=== PATIENT | male | born 1955 | race Caucasian/White ===

== ENCOUNTER → 2017-08-21 06:55 | Outpatient (CLI) | payer OTHER, SELFPAY ==
[2017-08-04 10:26] VITALS: BP 144/78; BMI 29.8
--- NOTE | 2017-08-21 06:57 | ECHOD_ITS ---
Reason For Study: CAD/ASHD Procedure This was a 2D Doppler, Color Flow transthoracic echocardiogram. The exam was of adequate technical quality. Exam performed in department. Left Ventricle Normal LV size. Segmental dysfunction with preserved ejection fraction (see wall motion). The estimated ejection fraction is 55 %. No evidence for diastolic dysfunction. Posterior-Basal: Severely hypokinetic. Infero-Basal: Akinetic. Mid-Lateral : Hypokinetic. Mid-Posterior: Akinetic. Mid-Inferior: Hypokinetic. Right Ventricle Normal RV size. Normal systolic function. Atria Normal left atrium. Normal right atrium. No doppler evidence for ASD. Mitral Valve There is no mitral annular calcification. Mild diffuse mitral valve thickening. Trivial mitral valve insufficiency. Tricuspid Valve Normal tricuspid valve. Trivial tricuspid valve insufficiency. Aortic Valve Trisinus/trileaflet aortic valve. Mild focal aortic valve calcification. Pulmonic Valve The pulmonic valve is not well visualized. Great Vessels Normal sized aortic root. Pericardium/Pleural No pericardial effusion. MMode/2D Measurements & Calculations LVIDd: 5.2 cm IVSd: 1.3 cm Ao root diam: 2.6 cm LVIDs: 3.9 cm LVPWd: 1.1 cm LA dimension: 3.6 cm RVDd: 3.4 cm FS: 23.8 % LAV(MOD-bp): 43.1 ml LA A4 area: 15.0 cm2 RA A4 area: 14.4 cm2 LAV(MOD-bp) Indexed: 19.4 ml/m2 LAV(MOD-sp2): 45.5 ml LAV(MOD-sp4): 39.4 ml Time Measurements MV dec time: 0.31 sec Doppler Measurements & Calculations MV E max pascual: 63.9 cm/sec Lat Peak E' Pascual: 5.9 cm/sec Med Peak E' Pascual: 5.0 cm/sec MV A max pascual: 76.7 cm/sec E/E' lat: 10.9 E/E' med: 12.7 MV E/A: 0.83 Ao V2 max: 131.7 cm/sec LV V1 max: 111.3 cm/sec PA V2 max: 230.1 cm/sec Ao max P.9 mmHg LV V1 max P.0 mmHg PA V2 mean: 145.0 cm/sec PA V2 VTI: 43.6 cm Interpretation Summary Segmental dysfunction with preserved ejection fraction (see wall motion). The estimated ejection fraction is 55 %. Mild diffuse mitral valve thickening. Trivial mitral valve insufficiency. Trivial tricuspid valve insufficiency. Mild focal aortic valve calcification. No evidence for diastolic dysfunction. Ordering Physician: German Pedro Referring Physician: Andriy Thomas Chi Performed By: Yahaira Dailey, LIEN, RVT
--- NOTE | 2017-08-21 10:20 | STRESSREP_ITS ---
Stress Test Report Date: 08/21/2017 Procedure: Exercise tolerance test/imaging study Indications: Shortness of breath/dyspnea; CAD; status post PCI Consent: Per the patient Procedure: The patient exercised on a Han protocol for 8 minutes completing stage 2 and 2 minutes of stage III achieving a peak heart rate of 146 bpm (92 % predicted maximal heart rate) with a peak blood pressure 158/50 mmHg and a peak MET capacity of 9 METs. The baseline ECG demonstrated sinus bradycardia with nonspecific T-wave abnormality. The peak exercise ECG demonstrated somatic/motion artifact with no obvious ECG changes. There was a rare PVC and ventricular couplet during exercise and recovery. The functional capacity was considered good. There was [no complaint of chest discomfort during exercise or recovery]. The examination was discontinued secondary to dyspnea. Impression: 1. Technically adequate (percent predicted maximal heart rate greater than 85% ) exercise tolerance test 2. Peak exercise ECG demonstrated somatic/motion artifact with no obvious ECG changes 3. Rare PVC and ventricular couplet during exercise and recovery. 4. Nuclear images pending Myocardial perfusion imaging study: Technique: The patient was injected with 14.4 mCi of technetium 99m Cardiolite and subsequently rest SPECT Cardiolite nuclear imaging was obtained in the horizontal long, vertical long, and short axis views. The patient exercised on a Han protocol for 8 minutes completing stage 2 and 2 minutes of stage III achieving a peak heart rate of 146 bpm (92 % predicted maximal heart rate) with a peak blood pressure 158/50 mmHg and a peak MET capacity of 9 METs. The patient was injected with 44.8 mCi of technetium 99m Cardiolite and subsequently stress SPECT Cardiolite nuclear imaging was obtained in the horizontal long, vertical long, and short axis views. A gated Cardiolite study at peak stress was obtained. Interpretation: Rest and stress SPECT Cardiolite nuclear imaging status post realignment, normalization, and attenuation correction, demonstrates the appearance of diminished absence of tracer uptake in portions of the basal inferoseptal, basal inferior, and basal inferolateral segments extending through the mid to distal inferior lateral, inferior apical and lateral apical segments which appears to be somewhat more prominent following stress as opposed to rest. There is diminished end systolic thickening and brightening in the aforementioned areas. The gated Cardiolite study demonstrates diminished myocardial thickening and inward wall motion in the basal inferior segments. The reported LVEF is 56 %. Impression: 1. Rest and stress SPECT Cardiolite nuclear imaging demonstrate cardio perfusion changes appearing compatible with an area of previous myocardial injury/infarction involving portions of the basal inferoseptal, basal inferior, and basal inferolateral segments extending through the mid to distal inferior lateral, inferoapical and lateral apical segments with associated post stress myocardial perfusion changes appearing compatible with jolie-infarct related myocardial ischemia. 2. The gated Cardiolite study reports an LVEF of 56 %. This note was generated with Good Thingation software. It may contain incorrect words, spelling, and punctuation that were not noted in checking the note before signing.
== END ==
PROVIDERS: Family Provider Family Medicine Geriatric Medicine; PCP Family Medicine Geriatric Medicine; Visit Provider Internal Medicine Cardiovascular Disease
DX: I25.10 Atherosclerotic heart disease of native coronary artery without angina pectoris (principal); R06.02 Shortness of breath
CPT/HCPCS: 78452; 93017; 93306; A9500; A4216

== ENCOUNTER → 2017-08-27 09:11 | Outpatient (CLI) | payer OTHER, SELFPAY ==
[2017-08-27 10:28] LABS: Thyroid Stim Hormone (TSH) 3.13 uIU/mL (0.358-3.74)
== END ==
PROVIDERS: Family Provider Family Medicine Geriatric Medicine; PCP Family Medicine Geriatric Medicine; Visit Provider Family Medicine Geriatric Medicine
DX: E05.90 Thyrotoxicosis, unspecified without thyrotoxic crisis or storm (principal)
CPT/HCPCS: 36415; 84443

== ENCOUNTER → 2017-08-28 10:46 | Outpatient (CLI) | payer OTHER, SELFPAY ==
--- NOTE | 2017-08-28 13:33 | PFT ---
INTRODUCTION: The patient is a 62-year-old male currently under the care of Dr. Pedro the presents for pulmonary function testing secondary to a diagnosis of shortness of breath. Respiratory therapy reports good patient effort and reports no other concerns. Bronchodilators were used during testing. INTERPRETATION: Forced expiration spirometry demonstrates no evidence of a large airways obstructive ventilatory defect. There was no significant response to aerosolized bronchodilators, based upon strict ATS criteria. Spirogram's are of fair quality and plateau gradually indicating slow emptying of the lungs. Body plethysmography was performed and reveals a decreased TLC to 5.96 L, 84% of predicted, indicative of a mild restrictive ventilatory defect. The remainder of the lung volumes are symmetrically reduced. Diffusing capacity by single breath CO is within normal limits. IMPRESSION: These pulmonary function studies demonstrate the presence of an isolated mild restrictive ventilatory defect. There are no previous pulmonary function studies available for comparison.
== END ==
PROVIDERS: Family Provider Family Medicine Geriatric Medicine; PCP Family Medicine Geriatric Medicine; Visit Provider Internal Medicine Cardiovascular Disease
DX: R06.02 Shortness of breath (principal)
CPT/HCPCS: 94060; 94726; 94729

== ENCOUNTER 2018-01-01 02:45 | Emergency (ER) | payer OTHER, SELFPAY ==
[2018-01-01 02:45] VITALS: BP 195/86; PULSE 73; RESP 16; TEMP 36.8; O2SAT 100; BMI 29.7
--- NOTE | 2018-01-01 03:02 | CT_ITS ---
STUDY: CT SOFT TISSUE NECK WITH CONTRAST REASON FOR EXAM: Male, 62 years old. Left mandibular swelling. Dental problems for months. History of coronary stent and hypertension. RADIATION DOSAGE (If Supplied By Facility): CTDIvol = ( 20.23 ) mGy, DLP = ( 707.31 ) mGycm TECHNIQUE: The patient was scanned in a multi-detector CT scanner. High resolution transaxial imaging was performed following intravenous administration of 75mL ml of Isovue 300 contrast material. Sagittal and coronal images were reconstructed. Individualized dose optimization techniques were used for this CT. COMPARISON: None. FINDINGS: There is prominent infiltration of subcutaneous fat in the left perimandibular region, consistent with cellulitis. There is no visualized soft tissue abscess. There are small periapical abscesses underlying the roots of the lower left premolar teeth #20 and #21. There is no demonstrated overlying cortical discontinuity, however, the periapical abscess of tooth #20 is contiguous with the left mental foramen and this may constitute a direct route for spread of infection into overlying soft tissues. Normal bilateral parotid glands. Normal bilateral blind eyeletter spaces. Normal bilateral parapharyngeal spaces. Normal bilateral carotid spaces. Normal bilateral sublingual and submandibular glands and spaces. Normal visualized nasopharynx. Normal retropharyngeal space. Normal perivertebral space. Normal visualized bilateral faucial tonsils. The visualized tongue, tongue base and oropharynx are normal. The visualized cervical lymph nodes (levels I-) are within normal size limits, and maintain normal morphology. There is no demonstrated solid or cystic mass lesion. There is no abnormal contrast enhancement. Normal epiglottis, bilateral vallecula and hypopharynx. The pre-epiglottic and paraglottic adipose spaces are normal. Normal visualized bilateral piriform sinuses, aryepiglottic folds, vocal cords, and arytenoid-cricoid articulations. Normal subglottic trachea. Normal bilateral lobes of the thyroid gland. Normal visualized pulmonary apices. There is a polyp or retention cyst in the right maxillary sinus. There is no evidence for acute sinusitis. Normal visualized cervical spine. CT/Soft Tissue Neck WITH Contrast IMPRESSION: Phlegmonous infiltration of subcutaneous fat in the left perimandibular region, consistent with cellulitis. No visualized discrete soft tissue abscess, at this time. Periapical abscesses of underlying lower left premolar teeth #20 and #21. The #20. Focal abscess is contiguous with the left mental foramen and this may represent a direct route for spread of periodontal infection into overlying soft tissues. No other significant abnormalities are demonstrated. Electronically Signed: Levi Morgan MD at 4:32 EDT , Service support ,
--- NOTE | 2018-01-01 03:08 | ED.DCSUM_ITS ---
- ER Visit Summary Date of Service: 01/01/18 Chief Complaint: Facial swelling History of Present Illness: The patient is a 62 M presents for facial swelling. Patient states he was told in August that he needed a root canal on a left mandibular molar, however he has not had that performed yet. The tooth has been hurting for the last few days. Patient went to bed and woke up with significant left-sided facial swelling. He denies any pain associated with it. He has associated headache that started when he went to bed. Patient has taken Tylenol for the headache. He denies fever, difficulty swallowing, shortness of breath, neck pain, cough, or any other symptoms. Patient is not currently on any antibiotics or blood thinners. Physical Examination: Vital signs: afebrile, hemodynamically stable, no hypoxia on room air General: well nourished, well developed, in no distress Skin: warm, dry, no rash, no pallor HEENT: normocephalic and atraumatic; PERRL, EOMI, significant swelling noted to the left perimandibular region, mildly tender to palpation, no fluctuance. Moist mucous membranes, no oropharyngeal lesions, no submandibular swelling, no sublingual edema, uvula is midline with no posterior pharynx erythema or exudate. No asymmetry to oropharyngeal structures. No tenderness to percussion of the teeth. No obvious abscess. No gingival lesions. Cardiovascular: regular rate and rhythm without murmurs, no peripheral edema, 2 + pulses all distal extremities Respiratory: No increased work of breathing, MSK: Moves all extremities, no deformities, normal strength Neuro: Awake and alert, oriented ?4. No facial droop, sensation and motor function intact and symmetric Test Results: Abnormal Lab Results 01/01/18 01/01/18 03:10 03:10 WBC 9.2 RBC 4.47 L Hgb 14.9 Hct 42.6 MCV 95.3 H MCH 33.3 H MCHC 35.0 RDW 11.8 RDW Differential 40.7 Plt Count 141 L MPV 11.1 Immature Gran % (Auto) 0.100 Neut % (Auto) 69.9 Lymph % (Auto) 16.7 L [place] % (Auto) 10.0 Eos % (Auto) 3.1 Baso % (Auto) 0.2 Absolute Neuts (auto) 6.4 Absolute Lymphs (auto) 1.53 Total Counted Not Reportable Sodium 143 Potassium 4.3 Chloride 108 H Carbon Dioxide 27.0 Anion Gap 8 BUN 16 Creatinine 0.94 Estim Creat Clear Calc 89.43 Est GFR (MDRD) Af Amer 104 Est GFR (MDRD) Non-Af 86 BUN/Creatinine Ratio 17.0 Glucose 107 H Calcium 8.4 L Clinical Impression(s) from Imaging Studies Soft Tissue Neck CT 01/01/18 03:02 IMPRESSION: Phlegmonous infiltration of subcutaneous fat in the left perimandibular region, consistent with cellulitis. No visualized discrete soft tissue abscess, at this time. Periapical abscesses of underlying lower left premolar teeth #20 and #21. The #20. Focal abscess is contiguous with the left mental foramen and this may represent a direct route for spread of periodontal infection into overlying soft tissues. No other significant abnormalities are demonstrated. Electronically Signed: Levi Morgan MD at 4:32 EDT , Service support , Emergency Department Course and Treatment: Patient has significant swelling to the left face over the perimandibular region. There is no fluctuance to the swelling, and there is no evidence of salivary duct stones during examination of the oropharynx. Given the history of dental disease with the preceding toothache and headache, now with significant facial swelling, CT soft tissue neck was performed. Labs showed no leukocytosis. CT showed cellulitis of the perimandibular region, likely due to periapical abscesses from teeth 20 and 21. Patient is well-appearing, has normal vital signs, is afebrile, has no leukocytosis, and no airway disruption, with cellulitis limited to the mandibular region of the face. Thus outpatient management will be performed. Patient was given a dose of IV Unasyn in the emergency department and started on Augmentin. He is to call his dentist as soon as the office opens today to make a follow-up appointment for as soon as possible for drainage of the periapical abscesses. Patient was given strict return precautions. Patient agreed with this plan. He had no worsening of his facial swelling on reevaluation. Patient was discharged home. Treatment Plan: [] Disposition: [] Impression: Left mandibular molar periapical abscess, left perimandibular facial cellulitis This note was generated with Dragon dictation software. It may contain incorrect words, spelling, and punctuation that were not noted in review of the chart prior to signing ED Disposition - Plan for ED Patient: Disposition: Home or Assisted Living Chief Complaint: Dental Instructions: ED Dental Abscess Facial Cellulitis Prescriptions: Amox/Clavulanate Tablet [Augmentin Tablet] 875 mg PO Q12H #20 tab Referrals: Andriy Thomas Chi, MD [Primary Care Provider] - Additional Instructions: Make an appointment with your dentist for as soon as possible to complete the dental work on your left lower teeth. Take the antibiotic as prescribed for the entire 10 days unless your dentist tells you to do otherwise. If you develop any worsening of your condition, such as worsening swelling, fever, neck pain or stiffness, trouble breathing or swallowing, or any other concerning symptoms, return immediately to the emergency department for another evaluation.
[2018-01-01] MEDS: 0.9% Normal Saline 1,000 ML 999 ML IV (03:13)
[2018-01-01 03:21] LABS: Absolute Lymphocyte Count 1.53 X10^3/ul (0.83-4.51); Absolute Neutrophil Count 6.4 X10^3/uL (2.0-7.7); Basophil# 0.02 X10^3/uL; Basophil% 0.2 % (0-1); Eosinophil# 0.28 X10^3/uL; Eosinophils% 3.1 % (0-5); Hematocrit 42.6 % (40-54); Hemoglobin 14.9 g/dl (13.0-16.5); Lymphocyte # 1.53 X10^3/ul (4.0); Lymphocyte % 16.7 % (19-41); Mean Corpuscular Hgb 33.3 pg (27.0-32.0); Mean Corpuscular Volume 95.3 fL (80-94); Mean Platelet Vol. 11.1 fl (6.2-12.0); Monocyte# 0.92 X10^3/uL; Neutrophil % 69.9 % (47-70); Platelet Count 141 K/mm3 (150-450); RBC Distribution Width CV 11.8 % (11.6-14.6); RBC Distribution Width SD 40.7 fl (35.1-43.9); Red Blood Count 4.47 M/mm3 (4.6-6.2); White Blood Count 9.2 K/mm3 (4.4-11.0)
[2018-01-01 03:22] LABS: POSITIVE COUNT NO; POSITIVE DIFFERENTIAL NO; POSITIVE MORPHOLOGY NO
[2018-01-01 03:53] LABS: Anion Gap 8 (5-15); BUN 16 mg/dL (7-18); Calcium,Total 8.4 mg/dL (8.5-10.1); Chloride 108 mmol/L (98-107); Creatinine, Serum 0.94 mg/dL (0.70-1.30); EST Glomerular Filtration Rate 86 mL/min (>60); Est Glom Filt Rate - Afr Amer 104 mL/min (>60); Estimated Creatinine Clearance 89.43 ml/min; Glucose 107 mg/dL (74-106); Potassium 4.3 mmol/L (3.5-5.1); Sodium Level 143 mmol/L (136-145)
[2018-01-01 04:13] VITALS: RESP 20; O2SAT 98
[2018-01-01] MEDS: Amox/Clavulanate 875 MG Tablet PO (04:52)
--- NOTE | 2018-01-01 04:52 | ED.DEP ---
ED Disposition - Plan for ED Patient: Disposition: Home or Assisted Living Chief Complaint: Dental Instructions: ED Dental Abscess Facial Cellulitis Prescriptions: Amox/Clavulanate Tablet [Augmentin Tablet] 875 mg PO Q12H #20 tab Referrals: Andriy Thomas Chi, MD [Primary Care Provider] - Additional Instructions: Make an appointment with your dentist for as soon as possible to complete the dental work on your left lower teeth. Take the antibiotic as prescribed for the entire 10 days unless your dentist tells you to do otherwise. If you develop any worsening of your condition, such as worsening swelling, fever, neck pain or stiffness, trouble breathing or swallowing, or any other concerning symptoms, return immediately to the emergency department for another evaluation.
[2018-01-01 05:57] VITALS: BP 173/83; PULSE 66; RESP 18; O2SAT 100
== END 2018-01-01 05:58 | disposition home or self-care (01) ==
PROVIDERS: Emergency Provider Emergency Medicine; Family Provider Family Medicine Geriatric Medicine; PCP Family Medicine Geriatric Medicine
DX: K04.7 Periapical abscess without sinus (principal); L03.211 Cellulitis of face; I25.10 Atherosclerotic heart disease of native coronary artery without angina pectoris; Z79.82 Long term (current) use of aspirin; Z79.899 Other long term (current) drug therapy; Z95.5 Presence of coronary angioplasty implant and graft
CPT/HCPCS: 70491; 80048; 85025; 96361; 96365; 99285; J7030; J7050; Q9967; A4216; J0295

== ENCOUNTER → 2018-07-13 14:58 | Outpatient (CLI) | payer OTHER, SELFPAY ==
[2018-07-13 14:58] VITALS: BMI 29.8
== END ==
PROVIDERS: Family Provider Family Medicine Geriatric Medicine; PCP Family Medicine Geriatric Medicine; Visit Provider Family Medicine Geriatric Medicine
DX: I10 Essential (primary) hypertension (principal); Z12.5 Encounter for screening for malignant neoplasm of prostate
CPT/HCPCS: 36415; 80053; 84153; 84443; G0103

== ENCOUNTER → 2020-02-14 12:24 | Outpatient (CLI) | payer MEDICARE, SELFPAY ==
[2020-02-11 14:10] VITALS: BMI 28.6
[2020-02-14 13:31] LABS: AST(SGOT) 19 U/L (15-37); Alanine Aminotransfer ALT/SGPT 42 U/L (16-61); Albumin, Serum 3.5 g/dL (3.2-5.0); Alkaline Phosphatase 89 U/L (45-117); Cholesterol 201 mg/dL (200); Globulin 3.3 g/dL (2.2-4.2); High Density Lipoprotein 27 mg/dL; Protein, Total 6.8 g/dL (6.4-8.2); T4 Total, Thyroxin 7.2 ug/dL (4.5-12.1); Triglycerides 284 mg/dL; Very Low Density Lipoprotein 57 mg/dL (5-40)
== END ==
PROVIDERS: PCP Family Medicine Geriatric Medicine; Referring Provider Internal Medicine Cardiovascular Disease; Visit Provider Internal Medicine Cardiovascular Disease
DX: E78.00 Pure hypercholesterolemia, unspecified (principal)
CPT/HCPCS: 36415; 80061; 80076; 84436; 84443

== ENCOUNTER → 2020-03-22 11:53 | Outpatient (CLI) | payer MEDICARE, SELFPAY ==
[2020-02-11 14:10] VITALS: BMI 28.6
[2020-03-22 12:47] LABS: Absolute Lymphocyte Count 1.36 X10^3/uL (0.83-4.51); Absolute Neutrophil Count 3.5 X10^3/uL (2.0-7.7); Basophil# 0.04 X10^3/uL; Basophil% 0.7 % (0-1); Eosinophil# 0.18 X10^3/uL; Eosinophils% 3.1 % (0-5); Hematocrit 47.6 % (40-54); Hemoglobin 16.1 g/dL (13.0-16.5); Lymphocyte # 1.36 X10^3/ul (4.0); Lymphocyte % 23.7 % (19-41); Mean Corp Hgb Conc 33.8 g/dL (32-36); Mean Corpuscular Hgb 32.3 pg (27.0-32.0); Mean Corpuscular Volume 95.4 fL (80-94); Mean Platelet Vol. 11.4 fl (6.2-12.0); Monocyte# 0.71 X10^3/uL; Monocyte% 12.3 % (0-10); NRBC Flagged by Analyzer 0 % (0-5); Neutrophil # 3.45 X10^3/uL (2.7-7.7); Platelet Count 174 K/mm3 (150-450); RBC Distribution Width SD 41.9 fl (35.1-43.9); Red Blood Count 4.99 M/mm3 (4.6-6.2); White Blood Count 5.8 K/mm3 (4.4-11.0)
[2020-03-22 13:10] LABS: ALB/GLOB Ratio 1.1 RATIO (0.9-2.4); AST(SGOT) 24 U/L (15-37); Alanine Aminotransfer ALT/SGPT 45 U/L (16-61); Albumin, Serum 3.7 g/dL (3.2-5.0); Alkaline Phosphatase 97 U/L (45-117); Anion Gap 3 (5-15); BUN 16 mg/dL (7-18); Calcium,Total 8.9 mg/dL (8.5-10.1); Chloride 107 mmol/L (98-107); EST Glomerular Filtration Rate 80 mL/min (>60); Est Glom Filt Rate - Afr Amer 96 mL/min (>60); Globulin 3.4 g/dL (2.2-4.2); Glucose 76 mg/dL (74-106); PSA,Total - Annual Screen 0.48 ng/mL (0.00-4.00); Potassium 4.6 mmol/L (3.5-5.1); Protein, Total 7.1 g/dL (6.4-8.2); Sodium Level 140 mmol/L (136-145); Thyroid Stim Hormone (TSH) 2.59 uIU/mL (0.358-3.74)
== END ==
PROVIDERS: PCP Family Medicine Geriatric Medicine; Visit Provider Family Medicine Geriatric Medicine
DX: E55.9 Vitamin D deficiency, unspecified (principal); I10 Essential (primary) hypertension; Z12.5 Encounter for screening for malignant neoplasm of prostate
CPT/HCPCS: 36415; 80053; 82306; 84153; 84443; 85025; G0103

== ENCOUNTER → 2021-03-28 10:21 | Outpatient (CLI) | payer MEDICARE, SELFPAY ==
[2021-03-28 12:19] LABS: Absolute Lymphocyte Count 1.58 X10^3/uL (0.83-4.51); Absolute Neutrophil Count 3.5 X10^3/uL (2.0-7.7); Basophil# 0.06 X10^3/uL; Eosinophil# 0.51 X10^3/uL; Eosinophils% 8.1 % (0-5); Hematocrit 49.2 % (40-54); Hemoglobin 16.6 g/dL (13.0-16.5); Lymphocyte # 1.58 X10^3/ul (0.83-4.51); Lymphocyte % 25.2 % (19-41); Mean Corp Hgb Conc 33.7 g/dL (32-36); Mean Platelet Vol. 12.3 fl (6.2-12.0); Monocyte# 0.56 X10^3/uL; Monocyte% 8.9 % (0-10); NRBC Flagged by Analyzer 0 % (0-5); Neutrophil # 3.54 X10^3/uL (2.7-7.7); Neutrophil % 56.6 % (47-70); Platelet Count 167 K/mm3 (150-450); RBC Distribution Width CV 12.4 % (11.6-14.6); RBC Distribution Width SD 43.6 fl (35.1-43.9); Red Blood Count 5.18 M/mm3 (4.6-6.2); White Blood Count 6.3 K/mm3 (4.4-11.0)
[2021-03-28 12:25] LABS: Vitamin D,25 Hydroxy 35.7 ng/mL
[2021-03-28 12:33] LABS: AST(SGOT) 18 U/L (15-37); Alanine Aminotransfer ALT/SGPT 37 U/L (16-61); Albumin, Serum 3.5 g/dL (3.2-5.0); Alkaline Phosphatase 87 U/L (45-117); Anion Gap 5 (5-15); BUN 16 mg/dL (7-18); BUN/Creat Ratio 14.7 RATIO (10-20); Chloride 107 mmol/L (98-107); Cholesterol 205 mg/dL (200); Creatinine, Serum 1.09 mg/dL (0.70-1.30); EST Glomerular Filtration Rate 72 mL/min (>60); Est Glom Filt Rate - Afr Amer 87 mL/min (>60); Globulin 3.6 g/dL (2.2-4.2); Glucose 108 mg/dL (74-106); High Density Lipoprotein 28 mg/dL; PSA,Total - Annual Screen 0.51 ng/mL (0.00-4.00); Potassium 4.6 mmol/L (3.5-5.1); Protein, Total 7.1 g/dL (6.4-8.2); Sodium Level 141 mmol/L (136-145); Thyroid Stim Hormone (TSH) 1.91 uIU/mL (0.358-3.74); Triglycerides 195 mg/dL; Very Low Density Lipoprotein 39 mg/dL (5-40)
== END ==
PROVIDERS: PCP Family Medicine Geriatric Medicine; Visit Provider Family Medicine Geriatric Medicine
DX: I10 Essential (primary) hypertension (principal); E78.5 Hyperlipidemia, unspecified; E55.9 Vitamin D deficiency, unspecified; Z12.5 Encounter for screening for malignant neoplasm of prostate
CPT/HCPCS: 36415; 80053; 80061; 82306; 84153; 84443; 85025; G0103

== ENCOUNTER → 2021-12-03 | Outpatient (CLI) | payer MEDICARE, SELFPAY ==
--- NOTE | 2021-12-03 14:42 | RAD_ITS ---
EXAM: XR ABDOMEN, 2 VIEWS CLINICAL INDICATION: ABDOMINAL PAIN TECHNIQUE: Frontal view of the abdomen/pelvis with upright view of the abdomen. This report was created using [employer] report generation technology. COMPARISON: None. FINDINGS: LOWER THORAX: No acute pathology. INTRAPERITONEAL SPACE: No free air. GASTROINTESTINAL TRACT: There is still in the colon may suggest constipation. Non-obstructive. No bowel or stomach distention. ORGANS: Unremarkable as visualized. No organomegaly. No abnormal calcifications. BONES/JOINTS: Mild degenerative findings in the lumbar spine. SOFT TISSUES: No acute pathology. RAD/Abd Inc Decub and/or Erect IMPRESSION: There is still in the colon may suggest constipation. Electronically Signed: John Law MD at 18:11 EDT ,
== END | disposition home or self-care (01) ==
PROVIDERS: PCP Family Medicine Geriatric Medicine; Referring Provider Family Medicine Geriatric Medicine; Visit Provider Family Medicine Geriatric Medicine
DX: R10.9 Unspecified abdominal pain (principal)
CPT/HCPCS: 74018; 74019

== ENCOUNTER 2022-03-20 08:41 | Day surgery (SDC) | payer MEDICARE, SELFPAY ==
[2022-03-20] VITALS (8 sets, daily range): BP systolic 129–153; BP diastolic 61–74; PULSE 52–58; RESP 16; TEMP 36.4–36.9; O2SAT 100; BMI 27.3
[2022-03-20] MEDS: Lactated Ringers 1,000 ML 15 ML IV (09:07)
--- NOTE | 2022-03-20 09:30 | EGD_PTH ---
PATIENT: BRENDEN LAROSE LOC: EN U#:[id number] AGE/SX: 67/M ROOM: RE03/20/[address]: Dr. Jean-Paul Moran DO : 1955 BED: DIS: 03/20/2022 SPEC #: [id number] RECD: 03/20/22 11:25 STATUS: ISAAK MANUEL #: [id number] SHA: 03/20/22 09:[address]: Jean-Paul Moran DEPT: SURGICAL PATHOLOGY RECD BY: Malathi Weinstein ENTERED: 03/20/22 12:28 SP TYPE: EGD BIOPSY PALLAVI DR: Dr. Andriy Thomas MD Tissues: Esophagus, NOS Procedures: Special Stain Group II Surgery Specimen Level IV Alcian Blue/PAS (control) HEADER OPERATION: EGD with biopsy, balloon dilation, gold probe (MAC) PRE-OP DIAGNOSIS: GERD TISSUE SUBMITTED: Distal esophagus biopsy MICROSCOPIC DIAGNOSIS Distal esophagus, biopsy: Fragments of gastroesophageal mucosa with chronic inflammation. Intestinal metaplasia (goblet cell metaplasia) not identified. See comment. ROSALBA:helen 03/21/2022 COMMENT Alcian blue/PAS stain with matched control is used in the evaluation of the specimen. MICROSCOPIC DESCRIPTION Slides are reviewed. GROSS DESCRIPTION Received in fixative is one container labeled with the patient's name and designated distal esophagus biopsy. The specimen consists of multiple irregular fragments of light rene soft tissue that in aggregate measure 0.9 x 0.3 x 0.1 cm. The specimen is totally submitted in one cassette. / ROSALBA:helen 03/20/2022 TC:3 CPT: 78165, 06891
--- NOTE | 2022-03-20 10:19 | PCM.HP.BLA ---
History and Physical Date of Admission: 03/20/22 WALDEMAR LAROSE, is a 67 M who presents to the office today for Initial consult. Waldemar established with this clinic 02.08.22 with referral from [employer] for further evaluation of GERD with throat burning, upset stomach, sour taste and bloating; with three occurrences in one week. Noted triggers include diet. He is not currently having any symptoms and has not had a recurrence of symptoms since that time. PCP started him with senna and protonix. Reports stooling every day or every other day with some straining prior to start of senna; he did not find this to be an issue. Currently having daily BM. PMH includes hyperlipidemia, HTN, heart catheterization, coronary artery stent, left ventricular systolic dysfunction. Xray abdomen 12.03.21 noted still in the colon suggesting constipation. ROS Const Constitutional: No anorexia, fatigue, fever(s), weight change or sleep problems Eyes Eyes: No change in vision ENT ENT: No abnormal hearing, difficulty swallowing, mouth lesions, tongue swelling or throat swelling Resp Respiratory: No cough or shortness of breath Cardio Cardiology: No chest pain at rest, chest pain with exertion, shortness of breath or dyspnea on exertion Gastro GI: No difficulty swallowing Genitourinary Male: No difficulty urinating or burning urination Musc Musculoskeletal: No joint pain, joint swelling, muscle weakness or decreased muscle mass Skin Skin: No hair loss in leg, yellowing of the eye, itchy eyes, rash, skin ulcer or skin swelling Neuro Neurology: No abnormal hearing, abnormal movements, confusion, unsteady gait/balance or memory loss Psych Psychiatric: No anxiety, No confusion and No memory loss Endo Endocrine: No fatigue or weight change Aller/Imm Allergy/Immunologic: No itchy eyes, throat swelling or tongue swelling Aamir/Lymp Hematologic/Lymphatic: No easy bleeding, easy bruising or enlarged lymph nodes Exam Const General: cooperative and comfortable Nutritional Appearance: average body habitus and well nourished [facility] Head: normal to inspection Ears: hearing grossly normal bilaterally Nose: external nose normal Face and sinus: normal facial exam Mouth: oral mucosae normal Throat: posterior oropharynx normal Eyes General: appearance normal, both eyes and all related structures Neck Neck: normal visual inspection Chest Chest palpation & inspection: normal inspection of the chest and normal palpation of entire chest wall Resp Effort & Inspection: normal respiratory effort Auscultation: Bilateral: Clear to Auscultation Cardio Palpation: normal PMI Rate: regular rate Rhythm: regular rhythm GI Inspection: normal to inspection Auscultation: normal bowel sounds Percussion: normal to percussion Palpation: no hepatosplenomegaly Skin General: no rashes or lesions noted Neuro General: patient alert Extrem General: normal to inspection Psych Affect: normal affect Quality Reporting Tobacco Screening ([facility] 138) Smoking Status: Never smoker Assessment and Plan Assessment and Plan (1) GERD (gastroesophageal reflux disease): ?Status:?Chronic ?Plan: Patient was having symptoms of gastroesophageal reflux disease until he was started on omeprazole therapy.? He has been having symptoms of reflux disease and recalls bloating for the last several years.? He is does not have any food intolerances.? He does not have any chest pain or shortness of breath.? He does not have any numbness or weakness.? He does have history of CAD and does take aspirin on a daily basis due to the fact that he had 3 stents placed.? His blood pressure is? stable.? The differential diagnosis for his upper GI symptoms would be atypical reflux disease, atypical reflux disease, hiatal hernia.? He should undergo an upper endoscopy evaluate his upper GI tract.? He was explained alternatives, risk, benefits include not withstanding bleeding, infection, sepsis, perforation, need for urgent .? He will have an ASA of 3. (2) Constipation: ?Status:?Chronic ?Plan: Patient has done well regarding his slow bowels with Senokot.? Told him that he should not take this for an extended period time as it can make his colon very lazy. I have re-examined the patient. There are no clinical changes since date of exam.
--- NOTE | 2022-03-20 11:03 | OP.EGD_ITS ---
Patient Name: Waldemar Duval Procedure Date: 03/20/2022 10:27 AM Date of : 1955 Age: 67 Procedure: Upper GI endoscopy Indications: Functional Dyspepsia, Dysphagia Providers: Jean-Paul Moran DO Medicines: Monitored Anesthesia Care Patient Profile: This is a 67 year old male. Refer to note in patient chart for documentation of history and physical. Patient has symptoms of chronic abdominal cramping and chronic dysphagia. Complications: No immediate complications. Procedure: Pre-Anesthesia Assessment: - Prior to the procedure, a History and Physical was performed, and patient medications and allergies were reviewed. The risks and benefits of the procedure and the sedation options and risks were discussed with the patient. All questions were answered and informed consent was obtained. Patient identification and proposed procedure were verified by the physician in the pre-procedure area. Mental Status Examination: alert and oriented. Airway Examination: normal oropharyngeal airway and neck mobility. Respiratory Examination: clear to auscultation. CV Examination: normal. Prophylactic Antibiotics: The patient does not require prophylactic antibiotics. Prior Anticoagulants: The patient has taken no previous anticoagulant or antiplatelet agents. ASA Grade Assessment: II - A patient with mild systemic disease. After reviewing the risks and benefits, the patient was deemed in satisfactory condition to undergo the procedure. The anesthesia plan was to use monitored anesthesia care (MAC). Immediately prior to administration of medications, the patient was re-assessed for adequacy to receive sedatives. The heart rate, respiratory rate, oxygen saturations, blood pressure, adequacy of pulmonary ventilation, and response to care were monitored throughout the procedure. The physical status of the patient was re-assessed after the procedure. After obtaining informed consent, the endoscope was passed under direct vision. Throughout the procedure, the patient's blood pressure, pulse, and oxygen saturations were monitored continuously. The gastroscope was introduced through the mouth, and advanced to the second part of duodenum. The upper GI endoscopy was accomplished without difficulty. The patient tolerated the procedure well. Scope In: 10:32:29 AM Scope Out: 10:51:17 AM Total Procedure Duration Time 0 hours 18 minutes 48 seconds Findings: A high-grade of narrowing, obstructing and severe Schatzki ring was found in the lower third of the esophagus. A TTS dilator was passed through the scope. Dilation with an 18-19-20 mm balloon dilator was performed to 18 mm. The dilation site was examined following endoscope reinsertion and showed complete resolution of luminal narrowing. Biopsies were taken with a cold forceps for histology. Verification of patient identification for the specimen was done. Estimated blood loss was minimal. Coagulation for tissue destruction using bipolar probe was successful. Estimated blood loss was minimal. A medium-sized hiatal hernia was present. Impression: - High-grade of narrowing, obstructing and severe Schatzki ring. Dilated. Biopsied. - Medium-sized hiatal hernia. Recommendation: - Discharge patient to home. - Full liquid diet. - No aspirin, ibuprofen, naproxen, or other non-steroidal anti-inflammatory drugs for 5 days after biopsy. - Await pathology results. Procedure Code(s): --- Professional --- 25752, Esophagogastroduodenoscopy, flexible, transoral; with ablation of tumor(s), polyp(s), or other lesion(s) (includes pre- and post-dilation and guide wire passage, when performed) 82028, 59, Esophagogastroduodenoscopy, flexible, transoral; with biopsy, single or multiple CPT copyright 2017 [employer]. All rights reserved. The codes documented in this report are preliminary and upon colleter review may be revised to meet current compliance requirements. Jean-Paul Moran DO 03/20/2022 11:02:35 AM This report has been signed electronically. Number of Addenda: 0 Note Initiated On: 03/20/2022 10:27 AM
--- NOTE | 2022-03-20 11:04 | OP.CCLET_ITS ---
03/20/2022 Andriy Thomas MD [address] [place] [address] Re : Upper GI endoscopy procedure for Waldemar Duval Dear Dr. Thomas This procedure was performed on Sunday, March 20, 2022. My impressions and recommendations are as follows: Impressions : - High-grade of narrowing, obstructing and severe Schatzki ring. Dilated. Biopsied. - Medium-sized hiatal hernia. Recommendations : - Discharge patient to home. - Full liquid diet. - No aspirin, ibuprofen, naproxen, or other non-steroidal anti-inflammatory drugs for 5 days after biopsy. - Await pathology results. My findings are described in the full procedure note, which is enclosed. If I can be of further assistance, please feel free to contact me at . Sincerely, Jean-Paul Moran, 03/20/2022 11:02:35 AM This report has been signed electronically.
== END 2022-03-20 12:45 | disposition home or self-care (01) ==
LOC: EN 08:43 → AC 08:44
PROVIDERS: PCP Family Medicine Geriatric Medicine; Referring Provider Family Medicine Geriatric Medicine; Visit Provider Internal Medicine Gastroenterology
PROC: 0DJ08ZZ Inspection of Upper Intestinal Tract, Via Natural or Artificial Opening Endoscopic (ICD-10-PCS; CPT 43235; principal; 2022-03-20 09:25)
DX: K44.9 Diaphragmatic hernia without obstruction or gangrene (principal); K21.9 Gastro-esophageal reflux disease without esophagitis; K22.2 Esophageal obstruction; I25.10 Atherosclerotic heart disease of native coronary artery without angina pectoris; I10 Essential (primary) hypertension; E03.9 Hypothyroidism, unspecified; E78.5 Hyperlipidemia, unspecified; Z79.899 Other long term (current) drug therapy; Z95.5 Presence of coronary angioplasty implant and graft; Z79.82 Long term (current) use of aspirin
CPT/HCPCS: 43249; 43239; 88305; 88313; J7120; J2405

== ENCOUNTER 2022-04-03 08:59 | Outpatient (CLI) | payer MEDICARE, SELFPAY ==
[2022-04-03 13:38] LABS: Absolute Lymphocyte Count 1.77 X10^3/uL (0.83-4.51); Absolute Neutrophil Count 4.7 X10^3/uL (2.0-7.7); Basophil# 0.06 X10^3/uL; Basophil% 0.8 % (0-1); Eosinophil# 0.21 X10^3/uL; Eosinophils% 2.9 % (0-5); Hematocrit 48.8 % (40-54); Hemoglobin 16.2 g/dL (13.0-16.5); Lymphocyte # 1.77 X10^3/ul (0.83-4.51); Lymphocyte % 24.1 % (19-41); Mean Corp Hgb Conc 33.2 g/dL (32-36); Mean Corpuscular Hgb 32.5 pg (27.0-32.0); Mean Corpuscular Volume 97.8 fL (80-94); Mean Platelet Vol. 12.3 fl (6.2-12.0); Monocyte# 0.56 X10^3/uL; Monocyte% 7.6 % (0-10); NRBC Flagged by Analyzer 0 % (0-5); Neutrophil # 4.72 X10^3/uL (2.7-7.7); Neutrophil % 64.3 % (47-70); Platelet Count 203 K/mm3 (150-450); RBC Distribution Width CV 12.4 % (11.6-14.6); RBC Distribution Width SD 44.3 fl (35.1-43.9); Red Blood Count 4.99 M/mm3 (4.6-6.2); White Blood Count 7.3 K/mm3 (4.4-11.0)
[2022-04-03 14:24] LABS: Vitamin D,25 Hydroxy 42.9 ng/mL
[2022-04-03 14:38] LABS: ALB/GLOB Ratio 1.1 RATIO (0.9-2.4); AST(SGOT) 17 U/L (15-37); Alanine Aminotransfer ALT/SGPT 39 U/L (16-61); Albumin, Serum 3.6 g/dL (3.2-5.0); Alkaline Phosphatase 99 U/L (45-117); Anion Gap 7 (5-15); BUN 16 mg/dL (7-18); BUN/Creat Ratio 13.9 RATIO (10-20); Calcium,Total 9.2 mg/dL (8.5-10.1); Chloride 107 mmol/L (98-107); Creatinine, Serum 1.15 mg/dL (0.70-1.30); EST Glomerular Filtration Rate 67 mL/min (>60); Est Glom Filt Rate - Afr Amer 82 mL/min (>60); Globulin 3.4 g/dL (2.2-4.2); Glucose 89 mg/dL (74-106); PSA,Total - Annual Screen 0.46 ng/mL (0.00-4.00); Potassium 3.7 mmol/L (3.5-5.1); Sodium Level 142 mmol/L (136-145); Thyroid Stim Hormone (TSH) 2.62 uIU/mL (0.358-3.74)
== END 2022-04-03 23:59 | disposition home or self-care (01) ==
LOC: POLAB3 08:59
PROVIDERS: PCP Family Medicine Geriatric Medicine; Visit Provider Family Medicine Geriatric Medicine
DX: I10 Essential (primary) hypertension (principal); E55.9 Vitamin D deficiency, unspecified; Z12.5 Encounter for screening for malignant neoplasm of prostate
CPT/HCPCS: 36415; 80053; 82306; 84153; 84443; 85025; G0103

== ENCOUNTER → 2022-07-03 | Outpatient (CLI) | payer MEDICARE, SELFPAY ==
--- NOTE | 2022-07-03 06:10 | ECHOD_ITS ---
Reason For Study: CAD/ASHD Procedure This was a 2D Doppler, Color Flow transthoracic echocardiogram. The study was technically difficult. Exam performed in department. Left Ventricle Borderline enlarged left ventricle. Mild segmental systolic dysfunction (see wall motion). The estimated ejection fraction is 50 %. No evidence for diastolic dysfunction. Lateral-Basal: Hypokinetic. Posterior-Basal: Akinetic. Infero-Basal: Akinetic. Mid-Lateral : Hypokinetic. Mid- Posterior: Akinetic. Mid-Inferior: Akinetic. Right Ventricle Normal RV size. Normal systolic function. Atria Normal left atrium. Normal right atrium. No doppler evidence for ASD. Mitral Valve There is no mitral annular calcification. Normal mitral valve. Mild (1+) mitral valve insufficiency. Tricuspid Valve Normal tricuspid valve. Trivial tricuspid valve insufficiency. Unable to estimate RV systolic pressure due to insufficient tricuspid regurgitant envelope. Aortic Valve Trisinus/trileaflet aortic valve. Mild focal aortic valve calcification. Pulmonic Valve The pulmonic valve is not well visualized. Great Vessels Normal sized aortic root. Pericardium/Pleural No pericardial effusion. MMode/2D Measurements & Calculations LVIDd: 5.4 cm IVSd: 1.3 cm Ao root diam: 3.3 cm LVIDs: 4.9 cm LVPWd: 0.58 cm RVDd: 4.0 cm FS: 9.9 % LAV(MOD-bp): 45.7 ml RVOT diam: 2.1 cm LVAd ap4: 36.2 cm2 LAV(MOD-bp) Indexed: 21.2 ml/m2 LVLd ap4: 9.2 cm LAV(MOD-sp2): 41.2 ml EDV(MOD-sp4): 118.2 ml LAV(MOD-sp4): 46.0 ml EDV(sp4-el): 121.0 ml LVAs ap4: 22.3 cm2 LVLs ap4: 8.1 cm ESV(MOD-sp4): 52.7 ml ESV(sp4-el): 52.1 ml EF(MOD-sp4): 55.5 % EF(sp4-el): 56.9 % LVAd ap2: 39.4 cm2 SV(MOD-sp4): 65.5 ml SV(MOD-sp2): 69.2 ml LVLd ap2: 9.0 cm EDV(MOD-sp2): 143.2 ml EDV(sp2-el): 145.7 ml LVAs ap2: 25.1 cm2 LVLs ap2: 7.2 cm ESV(MOD-sp2): 73.9 ml ESV(sp2-el): 74.1 ml EF(MOD-sp2): 48.4 % SV(sp4-el): 68.8 ml LA dimension(2D): 3.8 cm LA A4 area: 16.2 cm2 RA A4 area: 12.5 cm2 Doppler Measurements & Calculations MV E max pascual: 65.9 cm/sec Lat Peak E' Pascual: 8.9 cm/sec Med Peak E' Pascual: 4.9 cm/sec MV A max pascual: 68.6 cm/sec E/E' lat: 7.4 E/E' med: 13.5 MV E/A: 0.96 Ao V2 max: 133.3 cm/sec LV V1 max: 115.9 cm/sec PA V2 max: 211.5 cm/sec Ao max P.1 mmHg LV V1 max P.4 mmHg PA max PG (full): 15.7 mmHg Ao V2 mean: 96.3 cm/sec PA V2 mean: 147.1 cm/sec Ao mean P.0 mmHg PA mean PG (full): 8.4 mmHg Ao V2 VTI: 34.8 cm SV(RVOT): 71.3 ml ECHO/Echo Complete Interpretation Summary The study was technically difficult. Borderline enlarged left ventricle. Mild segmental systolic dysfunction (see wall motion). The estimated ejection fraction is 50 %. Mild (1+) mitral valve insufficiency. Trivial tricuspid valve insufficiency. Mild focal aortic valve calcification. Unable to estimate RV systolic pressure due to insufficient tricuspid regurgita nt envelope. No evidence for diastolic dysfunction. Ordering Physician: German Pedro Referring Physician: Andriy Thomas Chi Performed By: Lizzie Segura, RDCS, RVT
--- NOTE | 2022-07-03 12:11 | STRESSREP_ITS ---
Stress Test Report Date: 07-03-2022 Procedure: Exercise tolerance test/imaging study Indications: Shortness of breath/dyspnea on exertion; CAD; PCI Consent: Per the patient Procedure: The patient exercised on a Han protocol for 8 minutes and 32 seconds completing Stage II and 2 minutes and 32 seconds of Stage III achieving a peak heart rate of 115 bpm (75% predicted maximal heart rate) with resting blood pressure of 132/80 mmHg and a peak blood pressure 210/80 mmHg and a peak MET capacity of 9 METs. The baseline ECG demonstrated sinus bradycardia; T wave abnormality: Consider myocardial ischemia. The peak exercise ECG demonstrated somatic/motion artifact with no obvious ECG changes. There was a rare PVC pretest and during exercise and an occasional PVC in recovery. Blood pressure response: Resting blood pressure: Borderline hypertension- exaggerated response. The functional capacity was considered good. There was no complaint of chest discomfort during exercise or recovery. The examination was discontinued secondary to unable to achieve target heart rate. Impression: 1. Technically adequate (percent predicted maximal heart rate greater than 85%) exercise tolerance test 2. Peak exercise ECG with somatic/motion artifact with no obvious ECG changes 3. There was a rare PVC pretest and during exercise and an occasional PVC in re covery 4. Blood pressure response: Resting blood pressure: Borderline hypertension- exaggerated response. 5. Pharmacologic (Regadenoson) evaluation pending Procedure: Pharmacologic stress nuclear imaging study Consent: Per the patient Procedure: The patient underwent pharmacologic (Regadenoson 0.4mg ) evaluation with a peak heart rate of 76 beats per minute (49%predicted maximal heart rate) and a resting blood pressure of 146/74 mmHg and a peak blood pressure of 146/74 mmHg. The baseline ECG demonstrated sinus rhythm; T wave abnormality: Consider myocardial ischemia. The peak pharmacologic ECG demonstrated no obvious ECG changes. There were no cardiac dysrhythmias pretest, during pharmacologic infusion, or recovery. There was no complaint of chest discomfort during pharmacologic infusion or recovery. The examination was discontinued secondary to completion of protocol. Impression: 1. Pharmacologic (Regadenoson) evaluation 2. Peak pharmacologic ECG with with no obvious ECG changes. 3. There were no cardiac dysrhythmias pretest, during pharmacologic infusion, or recovery. 4. Nuclear images pending Myocardial perfusion imaging study: Technique: The patient was injected with 14.2 millicuries of technetium 99m Cardiolite and subsequently rest SPECT Cardiolite nuclear imaging was obtained in the horizontal long, vertical long, and short axis views. The patient exercised on a Han protocol for 8 minutes and 32 seconds completing Stage II and 2 minutes and 32 seconds of Stage III achieving a peak heart rate of 115 bpm (75% predicted maximal heart rate) with resting blood pressure of 132/80 mmHg and a peak blood pressure 210/80 mmHg and a peak MET capacity of 9 METs. The patient underwent pharmacologic (Regadenoson) evaluation with a peak heart rate of 76 beats per minute (49% percent predicted maximal heart rate) and a resting blood pressure of 146/74 mmHg and a peak blood pressure of 146/74 mmHg. The patient was injected with 44.3 millicuries of technetium 99m Cardiolite and subsequently stress SPECT Cardiolite nuclear imaging was obtained in the horizontal long, vertical long, and short axis views. A gated Cardiolite study at peak stress was obtained. Interpretation: Rest and stress SPECT Cardiolite nuclear imaging status post realignment, normalization, and attenuation correction demonstrate the appearance of body motion during image acquisition and on the preattenuation corrected images the appearance of diminished myocardial perfusion/tracer uptake in portions of the basal to distal inferior lateral segments. On the post attenuation corrected images there are similar type findings taking into consideration the body motion during image acquisition. There is diminished end-systolic thickening and brightening. The gated Cardiolite study demonstrates diminished myocardial thickening and inward wall motion.. The reported LVEF is 41%. Impression: 1. Rest and stress SPECT Cardiolite nuclear imaging demonstrate myocardial pe rfusion changes appearing compatible with an area of previous myocardial injury/infarction involving portions of the basal to distal inferior/inferolateral segments with no myocardial perfusion changes considered diagnostic for associated stress-induced myocardial ischemia. 2. The gated Cardiolite study reports an LVEF of 41%. This note was generated with [employer] software. It may contain incorrect words, spelling, and punctuation that were not noted in checking the note before signing.
== END | disposition home or self-care (01) ==
LOC: CVS 06:05
PROVIDERS: PCP Family Medicine Geriatric Medicine; Referring Provider Internal Medicine Cardiovascular Disease; Visit Provider Internal Medicine Cardiovascular Disease
DX: R06.02 Shortness of breath (principal); K21.9 Gastro-esophageal reflux disease without esophagitis; E78.5 Hyperlipidemia, unspecified; I25.10 Atherosclerotic heart disease of native coronary artery without angina pectoris; Z95.5 Presence of coronary angioplasty implant and graft
CPT/HCPCS: 78452; 93017; 93306; A9500; A4216; J2785

== ENCOUNTER → 2023-04-10 | Outpatient (CLI) | payer MEDICARE, SELFPAY ==
[2023-04-10 17:36] LABS: Absolute Lymphocyte Count 1.64 X10^3/uL (0.83-4.51); Absolute Neutrophil Count 3.9 X10^3/uL (2.0-7.7); Basophil# 0.06 X10^3/uL; Basophil% 0.9 % (0-1); Eosinophil# 0.27 X10^3/uL; Eosinophils% 4.1 % (0-5); Hematocrit 45.5 % (40-54); Hemoglobin 15.1 g/dL (13.0-16.5); Lymphocyte # 1.64 X10^3/ul (0.83-4.51); Mean Corp Hgb Conc 33.2 g/dL (32-36); Mean Corpuscular Hgb 31.9 pg (27.0-32.0); Mean Corpuscular Volume 96.2 fL (80-94); Monocyte# 0.64 X10^3/uL; Monocyte% 9.8 % (0-10); NRBC Flagged by Analyzer 0 % (0-5); Neutrophil # 3.92 X10^3/uL (2.7-7.7); Neutrophil % 59.7 % (47-70); Platelet Count 188 K/mm3 (150-450); RBC Distribution Width CV 11.9 % (11.6-14.6); RBC Distribution Width SD 42.4 fl (35.1-43.9); Red Blood Count 4.73 M/mm3 (4.6-6.2); White Blood Count 6.6 K/mm3 (4.4-11.0)
[2023-04-10 18:02] LABS: Vitamin D,25 Hydroxy 49.1 ng/mL
[2023-04-10 18:11] LABS: ALB/GLOB Ratio 1.1 RATIO (0.9-2.4); AST(SGOT) 14 U/L (15-37); Alanine Aminotransfer ALT/SGPT 31 U/L (16-61); Albumin, Serum 3.4 g/dL (3.2-5.0); Alkaline Phosphatase 78 U/L (45-117); Anion Gap 4 (5-15); BUN 18 mg/dL (7-18); BUN/Creat Ratio 17.3 RATIO (10-20); Calcium,Total 9.2 mg/dL (8.5-10.1); Chloride 108 mmol/L (98-107); Creatinine, Serum 1.04 mg/dL (0.70-1.30); EST Glomerular Filtration Rate 75 mL/min (>60); Est Glom Filt Rate - Afr Amer 91 mL/min (>60); Glucose 98 mg/dL (74-106); PSA,Total - Annual Screen 0.37 ng/mL (0.00-4.00); Potassium 4.5 mmol/L (3.5-5.1); Protein, Total 6.4 g/dL (6.4-8.2); Sodium Level 140 mmol/L (136-145); Thyroid Stim Hormone (TSH) 2.25 uIU/mL (0.358-3.74)
== END | disposition home or self-care (01) ==
LOC: POLAB3 13:34
PROVIDERS: PCP Family Medicine Geriatric Medicine; Visit Provider Family Medicine Geriatric Medicine
DX: I10 Essential (primary) hypertension (principal); E55.9 Vitamin D deficiency, unspecified; Z12.5 Encounter for screening for malignant neoplasm of prostate
CPT/HCPCS: 36415; 80053; 82306; 84153; 84443; 85025; G0103

== ENCOUNTER → 2023-07-09 | Outpatient (CLI) | payer OTHER, SELFPAY ==
[2023-07-09 12:13] LABS: T4 Free Direct 1.34 ng/dL (0.76-1.46); Thyroid Stim Hormone (TSH) 2.46 uIU/mL (0.358-3.74)
[2023-07-09 12:23] LABS: T3 Total - Triiodothyronine 1.05 ng/mL (0.6-1.81)
== END | disposition home or self-care (01) ==
LOC: POLAB3 10:38
PROVIDERS: PCP Family Medicine Geriatric Medicine; Visit Provider Family Medicine Geriatric Medicine
DX: E03.9 Hypothyroidism, unspecified (principal)
CPT/HCPCS: 36415; 84439; 84443; 84480

== ENCOUNTER → 2023-12-30 | Outpatient (CLI) | payer OTHER, SELFPAY ==
[2023-12-30 15:27] LABS: Anion Gap 5 (5-15); BUN 25 mg/dL (7-18); BUN/Creat Ratio 20.5 RATIO (10-20); Calcium,Total 9.3 mg/dL (8.5-10.1); Chloride 104 mmol/L (98-107); Creatinine, Serum 1.22 mg/dL (0.70-1.30); EST Glomerular Filtration Rate 63 mL/min (>60); Est Glom Filt Rate - Afr Amer 76 mL/min (>60); Glucose 106 mg/dL (74-106); Potassium 4.3 mmol/L (3.5-5.1); Sodium Level 139 mmol/L (136-145)
== END | disposition home or self-care (01) ==
LOC: LAB 14:04
PROVIDERS: PCP Family Medicine Geriatric Medicine; Referring Provider Internal Medicine Cardiovascular Disease; Visit Provider Internal Medicine Cardiovascular Disease
DX: R06.02 Shortness of breath (principal); I10 Essential (primary) hypertension; R00.2 Palpitations; I51.9 Heart disease, unspecified
CPT/HCPCS: 36415; 80048

== ENCOUNTER → 2024-01-15 | Outpatient (CLI) | payer MEDICARE, SELFPAY ==
--- NOTE | 2024-01-15 07:10 | CDU_ITS ---
Reason For Study: BRUIT Rt. Velocities/BP Lt. Velocities/BP Prox CCA 108.4/14.9 cm/sec. Prox CCA 113.7/20.4 cm/sec. Mid CCA 84.2/18.2 cm/sec. Mid CCA 132.6/15.7 cm/sec. Dist CCA 79.8/16.0 cm/sec. Dist CCA 102.7/20.4 cm/sec. Prox ICA 101.8/29.4 cm/sec. Prox ICA 146.2/34.2 cm/sec. Mid ICA 118.0/32.1 cm/sec. Mid ICA 122.2/32.7 cm/sec. Dist ICA 118.0/30.3 cm/sec. Dist ICA 138.6/32.7 cm/sec. Rt. ICA/CCA = 118.0/84.2=1.4. Lt. ICA/CCA = 146.2/132.6=1.1. Prox ECA 163.7/23.3 cm/sec. Prox ECA 176.9/21.1 cm/sec. Rt. Vert. 61.4/14.2 cm/sec. Lt. Vert. 64.7/12.0 cm/sec. Right Extracranial There is homogeneous, smooth atherosclerotic plaque noted in the right common carotid artery. There is heterogeneous, smooth atherosclerotic plaque noted in the right internal carotid artery. There is intimal thickening but no significant atherosclerotic plaque noted in the right external carotid artery. Antegrade flow is noted in the right vertebral artery. Left Extracranial There is homogeneous, smooth atherosclerotic plaque noted in the left common carotid artery. There is homogeneous, smooth atherosclerotic plaque noted in the left internal carotid artery. There is heterogeneous, irregular atherosclerotic plaque noted in the left external carotid artery. Procedure Carotid Duplex 90613. This is a Carotid Duplex examination using B-mode, color flow and specral Doppler. Exam performed in department. VL/Carotid Duplex Ultrasound Interpretation Summary Mild (<50%) stenosis right extracranial internal carotid. Moderate (50-69%) stenosis left extracranial internal carotid. Patent and antegrade vertebrals bilaterally. Ordering Physician: Heidy Romero Referring Physician: Andriy Thomas chi Performed By: Yahaira Dailey, LIEN, RVT
--- NOTE | 2024-01-15 07:10 | ECHOD_ITS ---
Reason For Study: ROBLES Procedure This was a 2D Doppler, Color Flow transthoracic echocardiogram. Exam performed in department. Left Ventricle Normal left ventricular size. Mild left ventricular concentric hypertrophy. Inferior and posterior akinesis with thinning. Estimated LVEF 50%. Borderline global longitudinal strain. Normal diastology for age. Right Ventricle Normal right ventricle. Atria The left and right atria are normal. Mitral Valve Mild (1+) mitral valve insufficiency. Tricuspid Valve Normal tricuspid valve. Aortic Valve Trisinus/trileaflet aortic valve. Pulmonic Valve Mild pulmonary valve stenosis with mean peak gradient of 10 mmHg. Great Vessels Normal sized aortic root. Pericardium/Pleural No pericardial effusion. MMode/2D Measurements & Calculations LVIDd: 5.4 cm IVSd: 1.6 cm Ao root diam: 3.1 cm LVIDs: 4.7 cm LVPWd: 0.51 cm RVDd: 3.8 cm FS: 13.5 % LAV(MOD-bp): 65.4 ml RVOT diam: 2.1 cm LVAd ap4: 38.6 cm2 LAV(MOD-bp) Indexed: 30.4 ml/m2 LVLd ap4: 9.3 cm LAV(MOD-sp2): 60.3 ml EDV(MOD-sp4): 132.5 ml LAV(MOD-sp4): 65.6 ml EDV(sp4-el): 135.1 ml LVAs ap4: 24.8 cm2 LVLs ap4: 8.4 cm ESV(MOD-sp4): 63.1 ml ESV(sp4-el): 62.1 ml EF(MOD-sp4): 52.4 % EF(sp4-el): 54.0 % LVAd ap2: 38.5 cm2 SV(MOD-sp4): 69.4 ml SV(MOD-sp2): 61.3 ml LVLd ap2: 9.4 cm EDV(MOD-sp2): 134.4 ml EDV(sp2-el): 134.0 ml LVAs ap2: 26.8 cm2 LVLs ap2: 8.4 cm ESV(MOD-sp2): 73.1 ml ESV(sp2-el): 72.5 ml EF(MOD-sp2): 45.6 % SV(sp4-el): 72.9 ml LA dimension(2D): 3.5 cm LA A4 area: 20.8 cm2 RA A4 area: 12.2 cm2 TAPSE: 2.6 cm Time Measurements MV dec time: 0.22 sec Doppler Measurements & Calculations MV E max pascual: 71.4 cm/sec Lat Peak E' Pascual: 11.0 cm/sec Med Peak E' Pascual: 6.5 cm/sec MV A max pascual: 86.7 cm/sec E/E' lat: 6.5 E/E' med: 11.0 MV E/A: 0.82 Ao V2 max: 134.3 cm/sec LV V1 max: 123.9 cm/sec MV dec slope: 322.0 cm/sec2 Ao max P.2 mmHg LV V1 max P.1 mmHg Ao V2 mean: 90.4 cm/sec LV V1 mean P.4 mmHg Ao mean P.8 mmHg LV V1 mean: 88.1 cm/sec Ao V2 VTI: 33.4 cm LV V1 VTI: 29.5 cm AV (velocity ratio): 0.88 PA V2 max: 234.3 cm/sec SV(RVOT): 67.8 ml PA max PG (full): 19.6 mmHg PA V2 mean: 158.6 cm/sec PA mean PG (full): 10.5 mmHg ECHO/Echo Complete Interpretation Summary Mild left ventricular concentric hypertrophy. Inferior and posterior akinesis w ith thinning. Estimated LVEF 50%. Borderline global longitudinal strain. Mild (1+) mitral valve insufficiency. Mild pulmonary valve stenosis with mean peak gradient of 10 mmHg. Ordering Physician: Heidy Romero Referring Physician: Andriy Thomas Chi Performed By: Emmie Prescott RDCS
--- NOTE | 2024-01-15 10:44 | STRESSREP ---
Stress Test Report Date: 01/15/2024 Procedure: Pharmacologic stress nuclear imaging study Indications: Coronary artery disease Consent: Per the patient Procedure: The patient underwent pharmacologic (Regadenoson 0.4mg ) evaluation with a peak heart rate of 72 beats per minute (47%predicted maximal heart rate) and a peak blood pressure of 138/68 mmHg. The baseline ECG demonstrated sinus rhythm, old inferior DE. The peak pharmacologic ECG demonstrated no diagnostic ischemic changes. There were no cardiac dysrhythmias pretest, during pharmacologic infusion, or recovery. There was no complaint of chest discomfort during pharmacologic infusion or recovery. The patient was injected with 15.0 millicuries of technetium 99m Cardiolite and subsequently rest SPECT Cardiolite nuclear imaging was obtained in the horizontal long, vertical long, and short axis views. The patient underwent pharmacologic (Regadenoson) evaluation. The patient was injected with 44.5 millicuries of technetium 99m Cardiolite and subsequently stress SPECT Cardiolite nuclear imaging was obtained in the horizontal long, vertical long, and short axis views. A gated Cardiolite study at peak stress was obtained. The examination was stopped secondary to completion of protocol. Rest and stress SPECT Cardiolite nuclear imaging status post realignment, normalization, and attenuation correction demonstrate large inferior posterior and lateral fixed defect consistent with previous myocardial infarction. Mild lateral jolie-infarct ischemia. There is akinesis of the inferior and posterior lakhani. The reported LVEF is 37%. Impression: 1. Pharmacologic (Regadenoson) evaluation 2. Peak pharmacologic ECG with no ischemic changes. 3. There were no cardiac dysrhythmias pretest, during pharmacologic infusion, or recovery. 5. Large inferior, posterior and lateral fixed defect consistent with previous transmural infarct. Mild to moderate lateral jolie-infarct ischemia. 6. The gated Cardiolite study reports an LVEF of 37%. This note was generated with [employer] software. It may contain incorrect words, spelling, and punctuation that were not noted in checking the note before signing.
== END | disposition home or self-care (01) ==
PROVIDERS: PCP Family Medicine Geriatric Medicine; Referring Provider Internal Medicine Cardiovascular Disease; Visit Provider Internal Medicine Cardiovascular Disease
DX: R06.09 Other forms of dyspnea (principal); R00.2 Palpitations; I25.10 Atherosclerotic heart disease of native coronary artery without angina pectoris; I51.9 Heart disease, unspecified; R09.89 Other specified symptoms and signs involving the circulatory and respiratory systems
CPT/HCPCS: 78452; 93017; 93306; 93880; A9500; A4216; J2785

== ENCOUNTER → 2024-02-17 | Outpatient (CLI) | payer MEDICARE, SELFPAY ==
--- NOTE | 2024-02-17 12:15 | RAD_ITS ---
EXAM: XR LUMBOSACRAL SPINE, 4 OR 5 VIEWS CLINICAL INDICATION: Unspecified thoracic, thoracolumbar and lumbosacral intervertebra TECHNIQUE: Frontal, lateral and bilateral oblique views of the lumbar spine. COMPARISON: Abdominal radiographs, 12/03/2021 FINDINGS: VERTEBRAE: Endplate osteophytosis and facet arthrosis. Preservation of the normal lumbar lordosis. No fracture, spondylolysis, or spondylolisthesis. OTHER BONES/JOINTS: Sclerotic focus within the left iliac bone is unchanged, perhaps a bone island. DISC SPACES: Multilevel intervertebral disc height loss. VASCULATURE: Vascular calcifications. GASTROINTESTINAL TRACT: Normal as visualized. Included bowel gas pattern is non-obstructive. RAD/L/S Spine Min 4 Views IMPRESSION: No fracture, spondylolysis, or spondylolisthesis. Degenerative changes correlating with the prior examination. Electronically Signed: Timoteo Ko DO at 23:59 EDT ,
== END | disposition home or self-care (01) ==
LOC: RAD 12:09
PROVIDERS: PCP Family Medicine Geriatric Medicine; Referring Provider Family Medicine Geriatric Medicine; Visit Provider Family Medicine Geriatric Medicine
DX: M54.31 Sciatica, right side (principal); M51.9 Unspecified thoracic, thoracolumbar and lumbosacral intervertebral disc disorder
CPT/HCPCS: 72110

== ENCOUNTER → 2024-05-07 | Outpatient (CLI) | payer MEDICARE, SELFPAY ==
[2024-05-07 11:06] LABS: Absolute Neutrophil Count 4.8 X10^3/uL (2.0-7.7); Basophil# 0.05 X10^3/uL; Basophil% 0.7 % (0-1); Eosinophil# 0.15 X10^3/uL; Eosinophils% 2.1 % (0-5); Hematocrit 42.3 % (40-54); Hemoglobin 14.5 g/dL (13.0-16.5); Lymphocyte % 19.8 % (19-41); Mean Corp Hgb Conc 34.3 g/dL (32-36); Mean Corpuscular Hgb 33.3 pg (27.0-32.0); Mean Platelet Vol. 11.4 fl (6.2-12.0); Monocyte# 0.62 X10^3/uL; Monocyte% 8.8 % (0-10); NRBC Flagged by Analyzer 0 % (0-5); Neutrophil # 4.82 X10^3/uL (2.7-7.7); Neutrophil % 68.2 % (47-70); Platelet Count 160 K/mm3 (150-450); RBC Distribution Width CV 12.7 % (11.6-14.6); RBC Distribution Width SD 45.7 fl (35.1-43.9); Red Blood Count 4.36 M/mm3 (4.6-6.2); White Blood Count 7.1 K/mm3 (4.4-11.0)
[2024-05-07 11:42] LABS: Vitamin D,25 Hydroxy 63.7 ng/mL
[2024-05-07 11:50] LABS: ALB/GLOB Ratio 1.1 RATIO (0.9-2.4); AST(SGOT) 14 U/L (15-37); Alanine Aminotransfer ALT/SGPT 31 U/L (16-61); Albumin, Serum 3.3 g/dL (3.2-5.0); Alkaline Phosphatase 76 U/L (45-117); Anion Gap 2 (5-15); BUN 29 mg/dL (7-18); BUN/Creat Ratio 23.6 RATIO (10-20); Calcium,Total 8.6 mg/dL (8.5-10.1); Chloride 110 mmol/L (98-107); Creatinine, Serum 1.23 mg/dL (0.70-1.30); EST Glomerular Filtration Rate 62 mL/min (>60); Est Glom Filt Rate - Afr Amer 75 mL/min (>60); Glucose 112 mg/dL (74-106); PSA,Total - Annual Screen 0.42 ng/mL (0.00-4.00); Potassium 4.3 mmol/L (3.5-5.1); Protein, Total 6.3 g/dL (6.4-8.2); Sodium Level 141 mmol/L (136-145)
== END | disposition home or self-care (01) ==
LOC: LAB 09:52
PROVIDERS: PCP Family Medicine Geriatric Medicine; Referring Provider Family Medicine Geriatric Medicine; Visit Provider Family Medicine Geriatric Medicine
DX: Z12.5 Encounter for screening for malignant neoplasm of prostate (principal); E03.9 Hypothyroidism, unspecified; I10 Essential (primary) hypertension; E55.9 Vitamin D deficiency, unspecified
CPT/HCPCS: 36415; 80053; 82306; 84153; 84403; 84443; 85025; G0103

== ENCOUNTER → 2024-09-29 | Outpatient (CLI) | payer MEDICARE, SELFPAY ==
--- NOTE | 2024-09-29 09:36 | CDU_ITS ---
Reason For Study Reason For Study: Carotid bruit Rt. Velocities/BP Lt. Velocities/BP Prox CCA 99.8/13.9 cm/sec. Prox CCA 112.1/18.8 cm/sec. Mid CCA 96.1/18.8 cm/sec. Mid CCA 85.1/16.3 cm/sec. Dist CCA 92.5/22.5 cm/sec. Dist CCA 79.0/17.6 cm/sec. Prox ICA 112.0/29.8 cm/sec. Prox ICA 163.1/46.8 cm/sec. Mid ICA 104.7/27.9 cm/sec. Mid ICA 117.0/27.0 cm/sec. Dist ICA 145.5/27.0 cm/sec. Dist ICA 108.2/20.4 cm/sec. Rt. ICA/CCA = 1.5. Lt. ICA/CCA = 1.9. Prox ECA 124.7/22.5 cm/sec. Prox ECA 145.5/22.6 cm/sec. Rt. Vert. 40.9/9.7 cm/sec. Lt. Vert. 44.6/10.2 cm/sec. Right Extracranial There is intimal thickening but no significant atherosclerotic plaque noted in the right common carotid artery. There is heterogeneous, irregular atherosclerotic plaque noted in the right internal carotid artery. There is intimal thickening but no significant atherosclerotic plaque noted in the right external carotid artery. Antegrade flow is noted in the right vertebral artery. Left Extracranial There is heterogeneous, irregular atherosclerotic plaque noted in the left common carotid artery. There is heterogeneous, irregular atherosclerotic plaque noted in the left internal carotid artery. There is heterogeneous, irregular atherosclerotic plaque noted in the left external carotid artery. Antegrade flow is noted in the left vertebral artery. Procedure Carotid Duplex 29227. This is a Carotid Duplex examination using B-mode, color flow and specral Doppler. Exam performed in department. VL/Carotid Duplex Ultrasound Interpretation Summary Moderate (50-69%) stenosis right extracranial internal carotid. Moderate (50-69%) stenosis left extracranial internal carotid. Patent and antegrade vertebrals bilaterally. Ordering Physician: Heidy Romero Referring Physician: Andriy Thomas Chi Performed By: Alexandria Scherer, WISAM
== END | disposition home or self-care (01) ==
PROVIDERS: PCP Family Medicine Geriatric Medicine; Referring Provider Internal Medicine Cardiovascular Disease; Visit Provider Internal Medicine Cardiovascular Disease
DX: R09.89 Other specified symptoms and signs involving the circulatory and respiratory systems (principal); I77.9 Disorder of arteries and arterioles, unspecified; R06.09 Other forms of dyspnea; R42 Dizziness and giddiness; R06.02 Shortness of breath
CPT/HCPCS: 93880

== ENCOUNTER → 2025-02-02 | Outpatient (CLI) | payer MEDICARE, SELFPAY ==
--- NOTE | 2025-02-02 11:02 | RAD_ITS ---
PROCEDURE: L/S SPINE MIN 4 VIEWS 02/02/2025 REASON FOR EXAM: LOW BACK PAIN, UNSPECIFIED TECHNIQUE: L/S SPINE MIN 4 VIEWS COMPARISON: Radiographs on 02/17/2024. FINDINGS: Unchanged mild degenerative levoscoliosis apex at L3. Unchanged well-defined necrotic lesion in the left iliac bone measuring 1 cm, probably a bone island. Calcified atheromatous plaques are noted. There are diffuse spondylotic changes. Findings are demonstrated to by diffuse disc space narrowing, osteophyte formation and degenerative endplate sclerosis. There is diffuse facet joint arthropathy with secondary bilateral neural foramina narrowing. No fracture or dislocation is seen. No aggressive lytic or blastic bony lesion is noted. Moderate amount of fecal residue in the large bowels. RAD/L/S Spine Min 4 Views IMPRESSION: Spondylosis. Findings have mildly progressed since the prior exam. Reading [facility]
== END | disposition home or self-care (01) ==
LOC: RAD 11:01
PROVIDERS: PCP Family Medicine Geriatric Medicine; Referring Provider Family Medicine Geriatric Medicine; Visit Provider Family Medicine Geriatric Medicine
DX: M54.50 Low back pain, unspecified (principal)
CPT/HCPCS: 72110

== ENCOUNTER 2025-03-03 11:00 | Outpatient (RCR) | payer MEDICARE, SELFPAY ==
--- NOTE | 2025-02-16 15:30 | HP.PTEVAL_ITS ---
Patient's Visit Information Visit Information Visit Information: BRENDEN LAROSE is a 70 year old M referred to Physical Therapy by Dr. Andriy Thomas MD with a diagnosis of LOW BACK PAIN AND MUSCLE SPASMS. Date of Evaluation: 02/16/25 Physical Therapist: Kash Wright, PT, Cert MDT, OCS Visit Plan Frequency: 2x /Week Duration: 4 Weeks Plan: PT INTERVENTIONS DLS ,POSTURAL EX'S ,BLE ( HIP STRENGTHENING) ,LE FLEXABILITY ,ACTIVITY MODIFICATION ,AND MODALITIES Subjective Subjective: This 70 y/o male presents to physical therapy lumbar pain. Patient has had lumbar occasional bilateral radicular symptoms and groin pain ~ 1 year ago. Each time back insidious onset and moving wrong way felt pinch, Most recently December LPB right bilateral legs . Seen DR x-rays showed There are diffuse spondylotic changes. Findings are demonstrated to by diffuse disc space narrowing, osteophyte formation and degenerative endplate sclerosis.There is diffuse facet joint arthropathy with secondary bilateral neural foraminal narrowing.Medication prednisone pack ,naproxen ,gabapentin and baclofen.Pain progressively got better. Aggravating factors walking/standing. Alleviating factors rest sitting medication rest. Coughing/sneezing-. Denies paresthesia/tingling -Sleeping good but pain can affects sleeping Patient has no treatments. Patient has no h/o trauma. Patient condition affects QOL aad function. SOCIAL: VOCATION: retired Objective Objective: POSTURE: mild forward posture NEURO: denies paresthesia/tingling ,reflexes L3-4,L4-5,L5-S 1 2/3 FLEXABILITY: hamstrings mod tight GAIT: reciprocal pattern PALAPTION: unremarkable LUMBAR ROM: flexion min/mod loss ,extension mod loss ,side glides mod loss MMT: quads/hams 4/5 ,hip flexion/abduction 4-/5 ,ankle 4/5 Special Tests L/S Slump test left side: Negative L/S Slump test right side: Negative L/S Left Straight Leg Raise: Negative L/S Right Straight Leg Raise: Negative Lumbar Standing: Flexion - Mechanical Response: No effect Lumbar Standing: Flexion - Symptoms During Testing: Increases Lumbar Standing: Flexion - Symptoms After Testing: No worse Lumbar Standing: Extension - Symptoms During Testing: Increases Lumbar Standing: Extension - Symptoms After Testing: No worse Lumbar Standing: Right Side Glides - Mechanical Response: No effect Lumbar Standing: Right Side [place] - Symptoms During Testing: No effect Lumbar Standing: Right Side [place] - Symptoms After Testing: No effect Lumbar Standing: Left Side [place] - Mechanical Response: No effect Lumbar Standing: Left Side [place] - Symptoms During Testing: No effect Lumbar Standing: Left Side [place] - Symptoms After Testing: No effect Lumbar Lying: Flexion - Mechanical Response: No effect Lumbar Lying: Flexion - Symptoms During Testing: Increases Lumbar Lying: Flexion - Symptoms After Testing: No worse Balance/Special Test Scores Oswestry Low Back Score: 21 Goals Goal 1:: Patient to be I with HEP lumbar Goal Time Frame: 4-6 Weeks Goal 2:: Patient to improve lumbar ROM for function of recovery to put on shoes and ADL's Goal Time Frame: 4-6 Weeks Goal 3:: Patient to improve back oswestry 5 points to improve QOL Goal Time Frame: 4-6 Weeks Goal 4:: Patient to demonstrate 50% improvement with less pain and improved function Goal Time Frame: 4-6 Weeks Goal 5:: Patient to improve ability to walk and stand to improve housework with min leg and back pain > 30 mins Goal Time Frame: 4-6 Weeks Rehabilitation Potential Physical Therapy Diagnosis: This patient has lumbar radiculopathy due to foraminal stenosis with pain worse with walking /standing affects ADLS and housework tasks thus benefit from skilled PT Rehabilitation Potential: Good Anticipated Interventions Patient/Client Instruction: Educate patient on: Condition and Plan of Care For the Purpose of:: To reduce risk of recurrence, To improve health and function, To foster healthy habits, To improve self management and To prevent re-injury Therapeutic Exercise to Include: Strength training, Postural training, Flexibilty training and Luis Exercises For the Purpose of:: To decrease pain, To increase ROM, To improve muscle performance and motor function, To improve ability to perform ADL's, To increase tolerance to activity/condition/position, To improve ability of physical actions for home/community/work/leisure, To improve gait and locomotor functions, To decrease soft tissue restriction, To increase flexibility/ROM and To improve tolerance to ADL's TENS: Yes IF ES: Yes Cryotherapy (ice pack, ice massage): Yes Thermo therapy (hot pack): Yes Ultrasound (thermal/non thermal): Yes For the Purpose of:: To decrease pain, To increase ROM, To improve health of tissue, To decrease soft tissue restriction and To increase flexibility/ROM Text: Thank you for the opportunity to evaluate your patient. For Medicare and Medicare HMO plans, please review the plan of care and approve it. It will need to be FAXED BACK to us at [phone] for Medicare purposes. For Medicare only, by signing this I certify the plan of care. Please let me know if there are questions or concerns regarding this plan of care. Physician Signature: Date:
== END 2025-03-03 19:00 | disposition home or self-care (01) ==
LOC: PT 11:00
PROVIDERS: PCP Family Medicine Geriatric Medicine; Referring Provider Family Medicine Geriatric Medicine; Visit Provider Family Medicine Geriatric Medicine
DX: M54.50 Low back pain, unspecified (principal)
CPT/HCPCS: 97110; 97162

== ENCOUNTER → 2025-05-18 | Outpatient (CLI) | payer MEDICARE, SELFPAY ==
[2025-05-18 10:38] LABS: Hematocrit 46.0 % (40-54); Hemoglobin 15.7 g/dL (13.0-16.5); Immature Granulocytes Count 0.020 X10^3/uL (0.0-0.0); Mean Corp Hgb Conc 34.1 g/dL (32-36); Mean Corpuscular Volume 94.3 fL (80-94); Mean Platelet Vol. 10.8 fl (6.2-12.0); NRBC Flagged by Analyzer 0 % (0-5); Platelet Count 214 K/mm3 (150-450); RBC Distribution Width CV 12.8 % (11.6-14.6); RBC Distribution Width SD 44.2 fl (35.1-43.9); Red Blood Count 4.88 M/mm3 (4.6-6.2); White Blood Count 8.9 K/mm3 (4.4-11.0)
[2025-05-18 12:02] LABS: AST(SGOT) 21 U/L (<=37); Alanine Aminotransfer ALT/SGPT 24 U/L (<=46); Albumin, Serum 4.0 g/dL (3.4-4.8); Alkaline Phosphatase 105 U/L (40-129); Anion Gap 11 (5-15); BUN 24 mg/dL (4-19); BUN/Creat Ratio 19.3 RATIO (10-20); Calcium,Total 9.6 mg/dL (7.6-11.0); Carbon Dioxide 26.3 mmol/L (21.0-32.0); Chloride 102 mmol/L (98-108); Cholesterol 173 mg/dL (<=200); Globulin 3.1 g/dL (2.2-4.2); Glucose 134 mg/dL (70-99); Low Density Lipoprotein Calc. 107 mg/dL; PSA,Total - Annual Screen 0.52 ng/mL (0.02-4.00); Potassium 4.6 mmol/L (3.3-5.1); Triglycerides 203 mg/dL; Very Low Density Lipoprotein 41 mg/dL (5-40); Vitamin D,25 Hydroxy 45.9 ng/mL (30-100); cholesterol:hdl ratio screen 5.77
[2025-05-18 18:03] LABS: Xtra Tube Kwok EXTRA TUBE
== END | disposition home or self-care (01) ==
LOC: POLAB3 10:03
PROVIDERS: PCP Family Medicine Geriatric Medicine; Visit Provider Family Medicine Geriatric Medicine
DX: Z12.5 Encounter for screening for malignant neoplasm of prostate (principal); I10 Essential (primary) hypertension; E78.5 Hyperlipidemia, unspecified; E55.9 Vitamin D deficiency, unspecified
CPT/HCPCS: 36415; 80053; 80061; 82306; 84153; 84443; 85025; G0103